=== PATIENT | female | born 1990 | race African-American/Black ===

== ENCOUNTER 2017-03-05 04:58 | Emergency (ER) | payer BC, OTHER ==
--- NOTE | 2017-03-05 05:11 | ER Document Report ---
ED Fall - General Mode of Arrival: Medic Information source: Patient TRAVEL OUTSIDE OF THE U.S. IN LAST 30 DAYS: No - HPI Occurred: Just prior to arrival Where: Home, Indoors Context: Fell from height Location of injury/pain: Elbow - left, Head <LINDA CROCKETT - Last Filed: 03/05/17 05:05> <AYLA MEJIA - Last Filed: 03/05/17 06:27> - General Stated Complaint: HEAD PAIN Time Seen by Provider: 03/05/17 05:01 Notes: The patient states that her legs felt weak when she was going to the bathroom and that is why she fell striking her head against the sink. EMS report stated that the patient slipped and fell. Either way, she did not lose consciousness. (AYLA MEJIA) - HPI Notes: Patient is a 26 year old female presenting to the emergency department after a fall. Patient states she was trying to go to the bathroom when she fell and hit the back of her head and her left elbow. Patient states her legs felt weak right before she fell. EMS reports the patient slipped and hit her head on the sink. Patient complains of pain to the back of her head and some photophobia. 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 Patient also has a history of hypertension, anxiety, and depression. Patient is allergic to oxycodone HCl. (LINDA CROCKETT) - Related data Allergies/Adverse Reactions: oxycodone HCl [From Percocet] Allergy (Verified 03/05/17 05:11) Hives Past Medical History - General Information source: Patient, [facility] Records - Social History Smoking Status: Never Smoker Cigarette use (# per day): No Chew tobacco use (# tins/day): No Smoking Education Provided: No Frequency of alcohol use: None Drug Abuse: None Family History: Hypertension Patient has suicidal ideation: No Patient has homicidal ideation: No - Past Medical History Cardiac Medical History: Reports: Hx Hypertension Neurological Medical History: Reports: Hx Cerebrovascular Accident - age 6 with left side residual weakness Psychiatric Medical History: Reports: Hx Anxiety, Hx Depression Past Surgical History: Reports: Hx Section - x 3, Hx Orthopedic Surgery - L LEG - Immunizations Hx Diphtheria, Pertussis, Tetanus Vaccination: Yes <LINDA CROCKETT - Last Filed: 03/05/17 05:05> Review of Systems - Review of Systems Constitutional: No symptoms reported EENT: No symptoms reported Cardiovascular: No symptoms reported Respiratory: No symptoms reported Gastrointestinal: No symptoms reported Genitourinary: No symptoms reported Female Genitourinary: No symptoms reported Musculoskeletal: See HPI, Joint pain Skin: No symptoms reported Hematologic/Lymphatic: No symptoms reported Neurological/Psychological: See HPI, Headaches -: Yes All other systems reviewed and negative <AMELIAFRANCO COLONINE - Last Filed: 03/05/17 05:05> Physical Exam <AMELIAFRANCO COLONINE - Last Filed: 03/05/17 05:05> <AYLA MEJIA - Last Filed: 03/05/17 06:27> - Vital signs Vitals: Temp Pulse Resp BP Pulse Ox 98.5 F 85 18 186/117 H 98 03/05/17 05:15 03/05/17 05:15 03/05/17 05:15 03/05/17 05:15 03/05/17 05:15 - Notes Notes: GENERAL: Alert, interacts well. Mild distress. HEAD: Normocephalic, atraumatic. Tenderness with palpation over the occiput. EYES: Appear normal. Pupils equal, round, and reactive to light. ENT: Moist mucus membranes, tongue midline. NECK: Full range of motion. Supple. Trachea midline. LUNGS: Clear to auscultation bilaterally, no wheezes, rales, or rhonchi. No respiratory distress. HEART: Regular rate and rhythm. No murmurs, gallops, or rubs. ABDOMEN: Soft, non-tender. Non-distended. Normal bowel sounds. EXTREMITIES: Chronic flexion and contracture of the left elbow related to previous CVA. No tenderness to the left elbow. No bruising, abrasions, or lacerations. NEUROLOGICAL: Alert and oriented x3. Normal speech. No focal neurological deficits. GSC 15. PSYCH: Normal affect, normal mood. SKIN: Warm, dry, normal turgor. No rashes or lesions noted. (AMELIAISAIAHLINDA) Course <LINDA CROCKETT - Last Filed: 03/05/17 05:05> - Laboratory Result Diagrams: 03/05/17 05:05 03/05/17 05:28 - Diagnostic Test Radiology reviewed: Image reviewed, Reports reviewed - Had an x-ray of the left elbow are unremarkable. <AYLA MEJIA - Last Filed: 03/05/17 06:27> - Re-evaluation Re-evalutation: 03/05/17 05:46 Patient's blood pressure is quite high (180/125). She is aware that she has high blood pressure and states she treats it by taking herbs. She is agreeable to starting blood pressure medications after I explained to her the likely consequences of allowing blood pressure to run this high over long period of time. When I told her I was giving her a dose of clonidine and lisinopril at this time , her mother reports she used to take both of those medications when she was younger. (AYLA MEJIA) - Vital Signs Vital signs: Temp Pulse Resp BP Pulse Ox 98.5 F 85 19 173/117 H 99 03/05/17 05:15 03/05/17 05:15 03/05/17 06:01 03/05/17 06:01 03/05/17 06:01 - Laboratory Laboratory results interpreted by me: 03/05/17 05:05 WBC 11.5 H Hgb 10.3 L Hct 31.6 L MCV 67 L MCH 22.0 L RDW 20.1 H Discharge <LINDA CROCKETT - Last Filed: 03/05/17 05:05> <AYLA MEJIA - Last Filed: 03/05/17 06:27> - Discharge Clinical Impression: Fall Qualifiers: Encounter type: initial encounter Qualified Code(s): W19.XXXA - Unspecified fall, initial encounter Contusion of occipital region of scalp Qualifiers: Encounter type: initial encounter Qualified Code(s): S00.03XA - Contusion of scalp, initial encounter Elbow contusion Qualifiers: Encounter type: initial encounter Laterality: left Qualified Code(s): S50.02XA - Contusion of left elbow, initial encounter High blood pressure Qualifiers: Hypertension type: essential hypertension Qualified Code(s): I10 - Essential ( primary) hypertension Condition: Stable Disposition: HOME, SELF-CARE Additional Instructions: Scalp and Elbow Contusions: Your fall has resulted in contusions -- a crushing of the deep tissues. No injury to important structures was detected during the physician's exam. Contusions vary in the amount of pain they cause, and in the length of time required for healing. Typically, the area will become bruised, and will remain painful to touch for two or three weeks. However, most patients are back to working and playing within a few days. After the initial period of rest and cold-packs, your symptoms (together with the doctor's recommendations) will determine how rapidly you can get back to full activity. Usually this means "do what feels okay, but don't do things that hurt." If re-examination was recommended, it's important to follow up as instructed. Call the doctor or return any time if pain increases, if swelling becomes severe, if you develop numbness or weakness in an injured extremity, or if any other alarming symptoms occur. High Blood Pressure, Requiring Treatment: Your blood pressure is high. This is called "hypertension. Your history and exam suggest that this is not a temporary problem. You need treatment of your blood pressure. If left untreated, high blood pressure greatly increases your risk of heart attack and stroke. Please don't ignore this problem. If you have blood pressure medicine but aren't using it regularly, start taking it again. Some simple things you can do to help are: Get some aerobic exercise for at least 20 minutes on a daily basis. (See your doctor before beginning any new exercise program.) Eat a low-fat diet. Lose excess weight. Avoid salty foods and avoid adding salt to any of the foods you eat. Avoid diet pills, decongestants, "energizing" herbs, and other medicines that elevate blood pressure. There are many different medicines that treat blood pressure. If your medication causes unpleasant side effects, call your doctor. There are others you can try. Treating hypertension is a life-long investment in your health. USE ICE-PACKS TO THE PAINFUL SCALP AND ELBOW AREAS TODAY. REST IN BED TODAY. DRINK PLENTY OF FLUIDS TODAY. DO NOT STAND UP QUICKLY. IF YOU STAND UP AND FEEL LIGHT HEADED, THEN LAY BACK DOWN. TAKE TYLENOL FOR PAIN IF NEEDED. START THE BLOOD PRESSURE MEDICATION TOMORROW(Wednesday). FOLLOW UP WITH A LOCAL MEDICAL DOCTOR NEXT WEEK TO CHECK YOUR BLOOD PRESSURE AND MODIFY THE MEDICATION NEEDED. RETURN TO THE EMERGENCY ROOM IF ANY NEW OR WORSENING SYMPTOMS. Prescriptions: Lisinopril 20 mg PO DAILY #30 tablet Scribe Attestation: 03/05/17 05:26 I personally performed the services described in the documentation, reviewed and edited the documentation which was dictated to the scribe in my presence, and it accurately records my words and actions. (AYLA MEJIA) Scribe Documentation - Scribe Written by Jorje:: Jorje Butler 03/05/17 5:14 acting as scribe for :: Aleida <LINDA CROCKETT - Last Filed: 03/05/17 05:05>
[2017-03-05 05:15] LABS: ABSOLUTE BASOPHILS # (AUTO) 0.1 10^3/uL (0.0-0.2); ABSOLUTE EOSINOPHILS # (AUTO) 0.1 10^3/uL (0.0-0.6); ABSOLUTE MONOCYTES (AUTO) 0.6 10^3/uL (0.1-1.4); ABSOLUTE NEUT (AUTO) 7.8 10^3/uL (1.7-8.2); BASOPHILS % (AUTO) 0.9 % (0-2); EOSINOPHILS % (AUTO) 0.7 % (0-6); HEMATOCRIT 31.6 % (36.0-47.0); HEMOGLOBIN 10.3 g/dL (12.0-15.5); HGB HCT DIFFERENCE -0.7; LYMPHOCYTES % (AUTO) 25.7 % (13-45); MEAN CORPUSCULAR HGB CONC 32.7 g/dL (32.0-36.0); MEAN CORPUSCULAR VOLUME 67 fl (80-97); MONOCYTES % (AUTO) 4.8 % (3-13); RED CELL DISTRIBUTION WIDTH 20.1 % (11.5-14.0); SEGMENTED NEUTROPHILS % (AUTO) 67.9 % (42-78); WHITE BLOOD COUNT 11.5 10^3/uL (4.0-10.5)
--- NOTE | 2017-03-05 05:37 | RADIOLOGY REPORT (SQ) ---
EXAM DESCRIPTION: CT HEAD WITHOUT COMPLETED DATE/TIME: 03/05/2017 5:17 am REASON FOR STUDY: fall, hit head and elbow COMPARISON: 05/08/2014. TECHNIQUE: Axial images acquired through the brain without intravenous contrast. Images reviewed wi th bone, brain and subdural windows. Images stored on PACS. All CT scanners at this facility use dose modulation, iterative reconstruction, and/or weight based d osing when appropriate to reduce radiation dose to as low as reasonably achievable (ALARA). [facility]: Dose Right [facility]: CareDose [facility]: Dose Right [facility]: Teradose 4D [facility]: Smart CareKinesis RADIATION DOSE: Up-to-date CT equipment and radiation dose reduction techniques were employed. CTDIv ol: 64.6 mGy. DLP: 1292 mGy-cm. mGy. LIMITATIONS: None. FINDINGS: VENTRICLES: Normal size and contour. CEREBRUM: 2.8 cm cystic lesion(s) of the right basal ganglia/ external capsule without significant in terval change compared with prior CT from 05/08/2014. No hemorrhage. No midline shift. Normal huizar /white matter differentiation. No evidence for acute infarction. CEREBELLUM: No masses. No hemorrhage. No alteration of density. No evidence for acute infarction. EXTRAAXIAL SPACES: No fluid collections. No masses. ORBITS AND GLOBE: No intra- or extraconal masses. Normal contour of globe without masses. CALVARIUM: No fracture. PARANASAL SINUSES: No fluid or mucosal thickening. SOFT TISSUES: No mass or hematoma. OTHER: No other significant finding. IMPRESSION: No acute findings. TECHNICAL DOCUMENTATION: JOB ID: [id number] Quality ID # [id number]: Final reports with documentation of one or more dose reduction techniques (e.g., Au tomated exposure control, adjustment of the mA and/or kV according to patient size, use of iterative reconstruction technique) 2010 [employer]- All Rights Reserved
--- NOTE | 2017-03-05 05:38 | RADIOLOGY REPORT (SQ) ---
EXAM DESCRIPTION: ELBOW LEFT AP/LATERAL COMPLETED DATE/TIME: 03/05/2017 5:25 am REASON FOR STUDY: fall, hit head and elbow COMPARISON: None. NUMBER OF VIEWS: Four views. TECHNIQUE: AP, lateral, and both oblique radiographic images acquired of the left elbow. LIMITATIONS: None. FINDINGS: MINERALIZATION: Normal. BONES: No acute fracture or dislocation. No worrisome bone lesions. JOINT: No effusion. SOFT TISSUES: No soft tissue swelling. No foreign body. OTHER: No other significant finding. IMPRESSION: NEGATIVE STUDY OF THE LEFT ELBOW. NO RADIOGRAPHIC EVIDENCE OF ACUTE INJURY. TECHNICAL DOCUMENTATION: JOB ID: [id number] [employer]- All Rights Reserved
[2017-03-05] MEDS ORDERED: CLONIDINE HCL 0.2 MG TABLET PO ONE (05:43)
[2017-03-05] MEDS ORDERED: LISINOPRIL 10 MG TABLET PO ONE (05:44)
[2017-03-05] MEDS ORDERED: ACETAMINOPHEN 325 MG TABLET PO ONE (05:44)
[2017-03-05 05:55] LABS: ALANINE AMINOTRANSFERASE 22 U/L (9-52); ALBUMIN 3.8 g/dL (3.5-5.0); ALKALINE PHOSPHATASE 78 U/L (38-126); ANION GAP 9 (5-19); ASPARTATE AMINO TRANSFERASE 16 U/L (14-36); BILIRUBIN,DIRECT 0.3 mg/dL (0.0-0.4); BILIRUBIN,TOTAL 0.4 mg/dL (0.2-1.3); BLOOD UREA NITROGEN 11 mg/dL (7-20); CALCIUM 9.3 mg/dL (8.4-10.2); CARBON DIOXIDE 24 mmol/L (22-30); CHLORIDE 107 mmol/L (98-107); CREATINE KINASE 78 U/L (30-135); CREATININE RESULT 0.73 mg/dL (0.52-1.25); GLUCOSE 95 mg/dL (75-110); POTASSIUM 3.9 mmol/L (3.6-5.0); SODIUM 140.4 mmol/L (137-145)
[2017-03-05 06:36] VITALS: BP 175/98
== END 2017-03-05 06:36 | disposition home or self-care (01) ==
LOC: ER 04:58
DX: S00.03XA Contusion of scalp, initial encounter (principal); S50.02XA Contusion of left elbow, initial encounter; I10 Essential (primary) hypertension; R51 Headache; R53.1 Weakness; F41.9 Anxiety disorder, unspecified; F32.9 Major depressive disorder, single episode, unspecified; W19.XXXA Unspecified fall, initial encounter
CPT/HCPCS: 36415; 70450; 80053; 82550; 84484; 85025; 99284

== ENCOUNTER 2017-04-08 18:27 | Emergency (ER) | payer SELFPAY ==
[2017-04-08 18:45] VITALS: BP 171/116
--- NOTE | 2017-04-08 20:37 | ER Document Report ---
ED ENT - General Chief Complaint: Sore Throat Stated Complaint: THROAT PAIN Time Seen by Provider: 04/08/17 20:03 Mode of Arrival: Ambulatory Information source: Patient Notes: 26-year-old female presents to ED for complaint of swollen lymph node in the left neck. She also has a tooth on the left lower jaw that has a cavity. She denies any fevers or any other symptoms. She does have an elevated blood pressure and she does not take her medications because she has not been to the doctor because her was killed on March 15 and has not been able to concentrate on anything. She has not been to the doctor for her blood pressure medication. She had a stroke when she was age 6 from elevated blood pressure. TRAVEL OUTSIDE OF THE [place].S[place] IN LAST 30 DAYS: No - HPI Patient complains to provider of: Throat problem Onset: Other - Couple days Onset/Duration: Gradual Quality of pain: Achy Severity: Moderate Pain Level: 3 Context: Other - Painful swelling to the left side of her neck Location of pain: Neck - Swollen lymph node, Throat Associated symptoms: Swollen glands, Other - Dental pain Similar symptoms previously: Yes Recently seen / treated by doctor: No - Related Data Allergies/Adverse Reactions: oxycodone HCl [From Percocet] Allergy (Verified 03/05/17 05:11) Hives Past Medical History - General Information source: Patient - Social History Smoking Status: Never Smoker Cigarette use (# per day): No Chew tobacco use (# tins/day): No Smoking Education Provided: No Frequency of alcohol use: None Drug Abuse: None Lives with: Alone - States she lives alone with her child now her on March 15 Family History: Arthritis, CAD, CVA, DM, Hyperlipidemia, Hypertension, Malignancy. denies: COPD, Thyroid Disfunction Patient has suicidal ideation: No - Past Medical History Cardiac Medical History: Reports: Hx Hypertension Pulmonary Medical History: Reports: None EENT Medical History: Reports: None Neurological Medical History: Reports: Hx Cerebrovascular Accident - age 6 with left side residual weakness Endocrine Medical History: Reports: None Renal/ Medical History: Reports: None Malignancy Medical History: Reports: None GI Medical History: Reports: None Musculoskeltal Medical History: Reports None Skin Medical History: Reports None Psychiatric Medical History: Reports: Hx Anxiety, Hx Depression Traumatic Medical History: Reports: None Infectious Medical History: Reports: None Past Surgical History: Reports: Hx Section - x 3, Hx Orthopedic Surgery - L LEG - Immunizations Immunizations up to date: Yes Hx Diphtheria, Pertussis, Tetanus Vaccination: Yes Review of Systems - Review of Systems Constitutional: Recent illness EENT: Nose discharge, Dental problem, Other - Enlarged lymph nodes in the neck Cardiovascular: No symptoms reported Respiratory: No symptoms reported Gastrointestinal: No symptoms reported Genitourinary: No symptoms reported Female Genitourinary: No symptoms reported Musculoskeletal: No symptoms reported Skin: No symptoms reported Hematologic/Lymphatic: No symptoms reported Neurological/Psychological: No symptoms reported -: Yes All other systems reviewed and negative Physical Exam - Vital signs Vitals: Temp Pulse Resp BP Pulse Ox 98.3 F 99 16 171/116 H 100 04/08/17 18:40 04/08/17 18:40 04/08/17 18:40 04/08/17 18:40 04/08/17 18:40 Interpretation: Hypertensive - General General appearance: Appears well, Alert - HEENT Head: Normocephalic, Atraumatic Eyes: Normal Pupils: PERRL Ears: Normal External canal: Normal Tympanic membrane: Normal Sinus: Normal Nasal: Swelling, Clear rhinorrhea Mouth/Lips: Caries Mucous membranes: Normal Pharynx: Post nasal drainage Neck: Anterior cervical chain, Lymphadenopathy - Respiratory Respiratory status: No respiratory distress Chest status: Nontender Breath sounds: Normal Chest palpation: Normal - Cardiovascular Rhythm: Regular Heart sounds: Normal auscultation Murmur: No - Abdominal Inspection: Normal Distension: No distension Bowel sounds: Normal Tenderness: Nontender Organomegaly: No organomegaly - Back Back: Normal, Nontender - Extremities General upper extremity: Normal inspection, Nontender, Normal color, Normal ROM , Normal temperature General lower extremity: Normal inspection, Nontender, Normal color, Normal ROM , Normal temperature, Normal weight bearing. No: Steph's sign - Neurological Neuro grossly intact: Yes Cognition: Normal Orientation: AAOx4 Jacky Coma Scale Eye Opening: Spontaneous Jacky Coma Scale Verbal: Oriented [place] Coma Scale Motor: Obeys Commands [place] Coma Scale Total: 15 Speech: Normal Motor strength normal: LUE, RUE, LLE, RLE Sensory: Normal - Psychological Associated symptoms: Normal affect, Normal mood - Skin Skin Temperature: Warm Skin Moisture: Dry Skin Color: Normal Course - Re-evaluation Re-evalutation: 09/14/17 20:53 Patient was given prescriptions for Penicillin VK and lisinopril for her dental cavity and her elevated blood pressure. Patient has a history of elevated blood pressure with a stroke and has not been taken her blood pressure medicine because she was upset about her being killed on March 15 of this year. I explained to the patient that since she has children and she is now the sole parent that she needs to be taken her blood pressure medicine and taking care of herself so that their children would have a parent. Patient was very thankful for me make sure that she understood that it was extremely important for her to take her medication as ordered. I wrote her a prescription for months with the lisinopril and gave her a list of all the local doctors to follow-up with to keep her blood pressure under control. - Vital Signs Vital signs: Temp Pulse Resp BP Pulse Ox 98.3 F 99 16 171/116 H 100 04/08/17 18:40 04/08/17 18:40 04/08/17 18:40 04/08/17 18:40 04/08/17 18:40 Discharge - Discharge Clinical Impression: Pain due to dental caries, Lymphadenopathy of head and neck Condition: Stable Disposition: HOME, SELF-CARE Instructions: Family Physicians / Practices Additional Instructions: TOOTHACHE: Your pain is due to dental decay. The tooth must be repaired in order for you to feel better. You will, therefore, be referred to a dentist. We do not have dentists on the staff at [facility]. Severe swelling or drainage around a tooth usually means a dental abscess. This also requires evaluation and treatment by the dentist, but antibiotics may be prescribed while awaiting dental treatment. You should be rechecked immediately if you develop major swelling of the face, increasing pain, a lump in the jaw or gums, headache, difficulty swallowing, or fever. Lymphadenopathy You have enlargement of lymph glands, called lymphadenopathy. Lymph glands filter tissue fluids. They help to fight infection. Most of the time, enlarged lymph glands are not serious. Lymph glands may react to a viral or bacterial infection by becoming swollen and painful. When the infection goes away, the glands shrink. Sometimes a lymph gland will remain enlarged for a long time after an infection. Occasionally, a lymph gland may be overwhelmed by infection and form an abscess. If an enlarged lymph gland has signs that are suspicious for tumor, the doctor will recommend a biopsy. A suspicious gland usually is NOT painful, grows very slowly, and is rock-hard to touch. See the doctor or return if there is increasing swelling and redness, high fever, difficulty breathing, or any other change for the worse. PENICILLIN V K: You have been given a prescription for Penicillin VK. Your physician has determined that this is the best antibiotic for your condition. Pen VK can be taken with meals, however more of the antibiotic gets into the bloodstream if it's taken on an empty stomach. Penicillin usually has no side effects. However, allergy to penicillins is common. If you have had an allergic reaction to any drug of the penicillin family, you should never take any other penicillin. Notify your doctor at once if you develop hives, itching, swelling, faintness, or shortness of breath. FOLLOW-UP CARE: You have been referred for follow-up care to the dentists listed below. Call the dentists office for an appointment as you were instructed or within the next two days. If you experience worsening or a significant change in your symptoms, notify the physician immediately or return to the Emergency Department at any time for re-evaluation. [facility] [address] [place], [place] Wednesday mornings, by appointment [facility] [address] [place] [address] [facility] [place] [address] [facility] [address] [facility] (4th) [facility] [address] [email or web address] [address] [place] [address] Wednesday- 8:00am to 5:00 pm Will see patients from other [facility]. Charges based on income and family size and accepts Medicare, Medicaid, and Insurances Will pull molars [facility] N. [id number] Hours of Operation 8:00 am - 4:30 pm weekdays The following dental offices accept Medicaid: [facility] Dr. Healy Dr. Bowden Dr. Veras Dr. Tran Sammy Denton, Rishi, and Mary oral surgery Dr. Pena ([place]) Dr. Tobar ([place]) [facility] Drs. Garcia and Irvin ([place]) Dr. Ojeda ([place]) [facility] Dr. Addison ([place]) Drs. Javier and ([place]) Medicaid Care Line Prescriptions: Lisinopril 20 mg PO DAILY #30 tablet Penicillin V Potassium [Penicillin Vk 500 mg Tablet] 500 mg PO BID #20 tablet Forms: Elevated Blood Pressure Referrals: LOCAL,NO [Primary Care Provider] - Follow up as needed
== END 2017-04-08 20:45 | disposition home or self-care (01) ==
LOC: ER 18:27
DX: K02.9 Dental caries, unspecified (principal); R59.1 Generalized enlarged lymph nodes; J02.9 Acute pharyngitis, unspecified; I10 Essential (primary) hypertension; I69.954 Hemiplegia and hemiparesis following unspecified cerebrovascular disease affecting left non-dominant side; Z88.6 Allergy status to analgesic agent
CPT/HCPCS: 99283

== ENCOUNTER 2017-12-21 19:59 | Emergency (ER) | payer OTHER ==
[2017-12-21 20:41] VITALS: BP 136/95
== END 2017-12-21 22:00 | disposition left against medical advice (07) ==
LOC: ER 19:59
DX: Z53.21 Procedure and treatment not carried out due to patient leaving prior to being seen by health care provider (principal)

== ENCOUNTER 2018-12-09 12:25 | Emergency (ER) | payer SELFPAY ==
[2018-12-09] MEDS ORDERED: ONDANSETRON HCL INJ/PF 4 MG/2 ML SDV IV ONE (12:38)
--- NOTE | 2018-12-09 12:42 | ER Document Report ---
ED Medical Screen (RME) - General Chief Complaint: Abdominal Pain Stated Complaint: ABDOMINAL PAIN Time Seen by Provider: 12/09/18 12:30 Mode of Arrival: Wheelchair Information source: Patient Notes: 28-year-old female presented to ED for complaint of severe epigastric pain just above the umbilicus this started about an hour ago. She stated in 9:51 AM this morning she started with nauseated and then progressed to the severe pain in the epigastric area. She does have a history of GERD she is also had a stroke in 1996 with left-sided weakness and she has a blood pressure with true high blood pressure. She states she took her high blood pressure medicine this morning. She is alert oriented respirations regular and unlabored speaking in full sentences she is in a wheelchair at this time. I have greeted and performed a rapid initial assessment of this patient. A comprehensive ED assessment and evaluation of the patient, analysis of test results and completion of medical decision making process will be conducted by an additional ED providers. Dictation of this chart was performed using voice recognition software; therefore, there may be some unintended grammatical errors. TRAVEL OUTSIDE OF THE [place] IN LAST 30 DAYS: No - Related Data Allergies/Adverse Reactions: oxycodone HCl [From Percocet] Allergy (Verified 12/09/18 12:26) Hives Past Medical History - Past Medical History Cardiac Medical History: Reports: Hx Hypertension Neurological Medical History: Reports: Hx Cerebrovascular Accident - age 6 with left side residual weakness Renal/ Medical History: Denies: Hx Peritoneal Dialysis Psychiatric Medical History: Reports: Hx Anxiety, Hx Depression Past Surgical History: Reports: Hx Section - x 3, Hx Orthopedic Surgery - L LEG - Immunizations Immunizations up to date: Yes Hx Diphtheria, Pertussis, Tetanus Vaccination: Yes Physical Exam - Vital signs Vitals: Temp Pulse Resp BP Pulse Ox 98.7 F 80 16 164/101 H 98 12/09/18 12:32 12/09/18 12:32 12/09/18 12:32 12/09/18 12:32 12/09/18 12:32 Course - Vital Signs Vital signs: Temp Pulse Resp BP Pulse Ox 98.7 F 80 16 164/101 H 98 12/09/18 12:32 12/09/18 12:32 12/09/18 12:32 12/09/18 12:32 12/09/18 12:32
--- NOTE | 2018-12-09 13:35 | RADIOLOGY REPORT (SQ) ---
EXAM DESCRIPTION: CHEST 2 VIEWS COMPLETED DATE/TIME: 12/09/2018 1:20 pm REASON FOR STUDY: epigastric pain COMPARISON: None. EXAM PARAMETERS: NUMBER OF VIEWS: two views TECHNIQUE: Digital Frontal and Lateral radiographic views of the chest acquired. RADIATION DOSE: NA LIMITATIONS: none FINDINGS: LUNGS AND PLEURA: No opacities, masses or pneumothorax. No pleural effusion. MEDIASTINUM AND HILAR STRUCTURES: No masses or contour abnormalities. HEART AND VASCULAR STRUCTURES: Heart normal size. No evidence for failure. BONES: Scoliosis. HARDWARE: None in the chest. OTHER: No other significant finding. IMPRESSION: Scoliosis. No acute cardiopulmonary findings. TECHNICAL DOCUMENTATION: JOB ID: [id number] [employer]- All Rights Reserved Reading location - IP/workstation name: [email or web address]
[2018-12-09 13:37] LABS: APPEARANCE,URINE SLIGHTLY-CLOUDY; BILIRUBIN,URINE NEGATIVE (NEGATIVE); COLOR,URINE YELLOW; GLUCOSE, URINE NEGATIVE (NEGATIVE); KETONES,URINE TRACE mg/dL (NEGATIVE); LEUKOCYTE ESTERASE,URINE NEGATIVE (NEGATIVE); NITRITE,URINE NEGATIVE (NEGATIVE); PROTEIN,URINE NEGATIVE (NEGATIVE); UROBILINOGEN,URINE NEGATIVE mg/dL (<2.0)
[2018-12-09] MEDS ORDERED: DICYCLOMINE HCL 20 MG TABLET PO ONE (14:14)
--- NOTE | 2018-12-09 14:19 | ER Document Report ---
ED General - General Chief Complaint: Abdominal Pain Stated Complaint: ABDOMINAL PAIN Time Seen by Provider: 12/09/18 12:30 Mode of Arrival: Wheelchair Information source: Patient TRAVEL OUTSIDE OF THE [place] IN LAST 30 DAYS: No - HPI Patient complains to provider of: Midline abdominal pain Onset: Other - 11:00 this morning Onset/Duration: Sudden, Waxing and waning Quality of pain: Sharp Severity: Severe Pain Level: 5 Associated symptoms: denies: Chills, Fever Exacerbated by: Denies Relieved by: Denies Similar symptoms previously: No Recently seen / treated by doctor: No Notes: 28-year-old -French female with history of acid reflux not presently treated coming in today with midline abdominal discomfort that she says radiates to her buttocks. No fevers or chills. No nausea vomiting or diarrhea. No recent history of constipation. Patient is not having any chest pain or shortness of breath. - Related Data Allergies/Adverse Reactions: oxycodone HCl [From Percocet] Allergy (Verified 12/09/18 12:26) Hives Past Medical History - General Information source: Patient - Social History Smoking Status: Never Smoker Frequency of alcohol use: None Drug Abuse: None Family History: Arthritis, CAD, CVA, DM, Hyperlipidemia, Hypertension, Romina gnancy. denies: COPD, Thyroid Disfunction Patient has suicidal ideation: No Patient has homicidal ideation: No - Past Medical History Cardiac Medical History: Reports: Hx Hypertension Neurological Medical History: Reports: Hx Cerebrovascular Accident - age 6 with left side residual weakness Renal/ Medical History: Denies: Hx Peritoneal Dialysis Psychiatric Medical History: Reports: Hx Anxiety, Hx Depression Past Surgical History: Reports: Hx Section - x 3, Hx Orthopedic Surgery - L LEG - Immunizations Immunizations up to date: Yes Hx Diphtheria, Pertussis, Tetanus Vaccination: Yes Review of Systems - Review of Systems Notes: Constitutional: No fevers. No chills. EENT: No eye redness. No eye pain. No ear pain. No sore throat. Cardiovascular: No chest pain. No palpitations. Respiratory: No cough. No shortness of breath. No respiratory distress. Gastrointestinal: Positive for abdominal pain negative for nausea vomiting diarrhea Genitourinary: Atraumatic. No lesions. No pain. No discharge. Musculoskeletal: Atraumatic. No swelling. No deformities. Skin: No rash or lesions. Lymphatic: No swollen lymph nodes. Neurologic: No headache. No syncope. Psychiatric: No suicidal or homicidal ideation. Physical Exam - Vital signs Vitals: Temp Pulse Resp BP Pulse Ox 98.7 F 80 16 164/101 H 98 12/09/18 12:32 12/09/18 12:32 12/09/18 12:32 12/09/18 12:32 12/09/18 12:32 - Notes Notes: General: Well-developed, well-nourished. In no acute distress. Non-toxic appearing. Cardiac: Well-perfused. Regular rate and rhythm. No murmurs, rubs, or gallops. Pulmonary: No respiratory distress. No cyanosis. Bilateral lung fiels are clear to auscultation. Abdominal: Tenderness to deep palpation just above the umbilicus. Abdomen is soft. No guarding or rebound. Bowel sounds are present in all 4 quadrants. No peritoneal sign HEENT: Head is atraumatic. Conjunctivae not reddened. No tearing. PERRL. EOMI. Orbits atraumatic. No periorbital swelling or erythema. Oropharynx is without erythema, swelling, or exudates. Neck: Supple. No adenopathy. No meningismus. Dermatologic: Warm with good turgor. No rash. Atraumatic. Chest: Atraumatic. No chest wall tenderness to palpation. Musculoskeletal: Moves all extremities well. No range of motion deficits. no muscular or joint tenderness. No paraspinal muscle tenderness. no midline spinal tenderness or step-off. Genitourinary: Examination deferred Neurologic: No gross neurologic deficits. Psychiatric: Normal mood. Course - Re-evaluation Re-evalutation: 12/09/18 14:18 Appropriate work-up started in pit. Because the patient is having referred pain from her abdomen to her buttock, we will get a KUB to check for signs of constipation. She definitely does not present like an acute abdomen. Quite possibly this is a problem having to do with acid reflux. 12/09/18 15:28 Right upper quadrant ultrasound negative. KUB reveals moderate retained stool throughout consistent with constipation. Labs are reassuring - Vital Signs Vital signs: Temp Pulse Resp BP Pulse Ox 98.7 F 80 16 164/101 H 98 12/09/18 12:32 12/09/18 12:32 12/09/18 12:32 12/09/18 12:32 12/09/18 12:32 - Laboratory Laboratory results interpreted by me: 12/09/18 13:00 Urine Ketones TRACE H Discharge - Discharge Clinical Impression: Elevated blood pressure reading Constipation Qualifiers: Constipation type: unspecified constipation type Qualified Code(s): K59.00 - Constipation, unspecified Condition: Good Disposition: HOME, SELF-CARE Instructions: Constipation ([facility]) Additional Instructions: Go to the pharmacy and get some MiraLAX as well as Metamucil as this should help to move along the excess amount of stool. Tylenol as needed for pain. Referrals: [facility] [Provider Group] - Follow up as needed
--- NOTE | 2018-12-09 14:48 | RADIOLOGY REPORT (SQ) ---
EXAM DESCRIPTION: U/S ABDOMEN LIMITED W/O DOP COMPLETED DATE/TIME: 12/09/2018 2:38 pm REASON FOR STUDY: epigastric pain COMPARISON: None. TECHNIQUE: Dynamic and static grayscale images acquired of the abdomen and recorded on PACS. Additio randee selected color Doppler and spectral images recorded. LIMITATIONS: None. FINDINGS: PANCREAS: No masses. Visualized pancreatic duct normal caliber. LIVER: No masses. Echotexture normal. LIVER VASCULATURE: Normal directional flow of the main portal vein and hepatic veins. GALLBLADDER: No stones. Normal wall thickness. No pericholecystic fluid. ULTRASOUND-DETECTED SINGH'S SIGN: Negative. INTRAHEPATIC DUCTS AND COMMON DUCT: CBD and intrahepatic ducts normal caliber. No filling defects. INFERIOR VENA CAVA: Normal flow. AORTA: No aneurysm. RIGHT KIDNEY: Normal size. Normal echogenicity. No solid or suspicious masses. No hydronephrosis. No calcifications. PERITONEAL AND RIGHT PLEURAL SPACE: No ascites or effusions. OTHER: No other significant findings. IMPRESSION: NORMAL RIGHT UPPER QUADRANT ULTRASOUND. TECHNICAL DOCUMENTATION: JOB ID: [id number] [employer]- All Rights Reserved Reading location - IP/workstation name: [email or web address]
--- NOTE | 2018-12-09 14:51 | RADIOLOGY REPORT (SQ) ---
EXAM DESCRIPTION: KUB/ABDOMEN (SINGLE VIEW) COMPLETED DATE/TIME: 12/09/2018 2:42 pm REASON FOR STUDY: periumbilical pain radiates to buttocks COMPARISON: None. NUMBER OF VIEWS: One view. TECHNIQUE: Supine radiographic image of the abdomen acquired. LIMITATIONS: None. FINDINGS: BOWEL GAS PATTERN: Nonobstructive gas pattern. Moderate retained stool. CALCIFICATIONS: No suspicious calcifications. SOFT TISSUES: No gross mass or suggestion of organomegaly. HARDWARE: None in the abdomen. BONES: No acute fracture. No worrisome bone lesions. OTHER: No other significant finding. IMPRESSION: NO RADIOGRAPHIC EVIDENCE FOR ACUTE ABDOMINAL DISEASE. TECHNICAL DOCUMENTATION: JOB ID: [id number] [employer]- All Rights Reserved Reading location - IP/workstation name: [email or web address]
[2018-12-09 16:05] VITALS: BP 149/94
--- NOTE | 2018-12-09 16:29 | EKG REPORT ---
SEVERITY:- BORDERLINE ECG - SINUS RHYTHM BORDERLINE T ABNORMALITIES, INFERIOR LEADS : Confirmed by: Basil Ortiz MD 09-Dec-2018 16:28:23
== END 2018-12-09 16:09 | disposition home or self-care (01) ==
LOC: ER 12:25
DX: I10 Essential (primary) hypertension (principal); K59.00 Constipation, unspecified; R10.9 Unspecified abdominal pain; Z88.6 Allergy status to analgesic agent; I69.354 Hemiplegia and hemiparesis following cerebral infarction affecting left non-dominant side
CPT/HCPCS: 93005; 99284; 96374; 81001; 71046; 74018; 76705; 93010; J3490; J2405

== ENCOUNTER 2019-04-09 15:04 | Emergency (ER) | payer OTHER ==
--- NOTE | 2019-04-09 15:29 | ER Document Report ---
ED ENT - General Chief Complaint: Chest Congestion Stated Complaint: DIFFICUTLY BREATHING Time Seen by Provider: 04/09/19 15:17 TRAVEL OUTSIDE OF THE [place] IN LAST 30 DAYS: No - Related Data Allergies/Adverse Reactions: oxycodone HCl [From Percocet] Allergy (Verified 04/09/19 15:05) Hives Past Medical History - Social History Smoking Status: Never Smoker Chew tobacco use (# tins/day): No Frequency of alcohol use: None Drug Abuse: None Family History: Arthritis, CAD, CVA, DM, Hyperlipidemia, Hypertension, Malignancy. denies: COPD, Thyroid Disfunction Patient has suicidal ideation: No Patient has homicidal ideation: No - Past Medical History Cardiac Medical History: Reports: Hx Hypertension Neurological Medical History: Reports: Hx Cerebrovascular Accident - age 6 with left side residual weakness Renal/ Medical History: Denies: Hx Peritoneal Dialysis Psychiatric Medical History: Reports: Hx Anxiety, Hx Depression Past Surgical History: Reports: Hx Section - x 3, Hx Orthopedic Surgery - L LEG - Immunizations Immunizations up to date: Yes Hx Diphtheria, Pertussis, Tetanus Vaccination: Yes Physical Exam - Vital signs Vitals: Temp Pulse Resp BP Pulse Ox 99.5 F 105 H 17 148/81 H 96 04/09/19 15:11 04/09/19 15:11 04/09/19 15:11 04/09/19 15:11 04/09/19 15:11 Course - Vital Signs Vital signs: Temp Pulse Resp BP Pulse Ox 99.5 F 105 H 17 148/81 H 96 04/09/19 15:11 04/09/19 15:11 04/09/19 15:11 04/09/19 15:11 04/09/19 15:11
--- NOTE | 2019-04-09 15:43 | ER Document Report ---
ED ENT - General Chief Complaint: Neck Swelling Stated Complaint: DIFFICUTLY BREATHING Time Seen by Provider: 04/09/19 15:17 Primary Care Provider: [facility] [Provider Group] - Follow up tomorrow Mode of Arrival: Ambulatory Information source: Patient Notes: 28-year-old female presents to ED for complaint of pain and swelling to the throat worse for the last couple days. She states she is felt like her thyroids were enlarged for a long time but when she saw her SIGHTER when rest recently they told her that at her next visit they would draw labs and check her thyroid. She is 14 weeks . She states she did have a stroke in 1996 and has a history of high blood pressure. She is also had 3 C-sections. She does not smoke drink or do any drugs she does not work she lives with her child. She is 4 para 3 one child lives with her TRAVEL OUTSIDE OF THE [place] IN LAST 30 DAYS: No - HPI Patient complains to provider of: Throat problem Onset: Other - Does not want pain medicine Onset/Duration: Gradual - ongoing Quality of pain: Other - Pressure Severity: Mild Pain Level: 2 Location of pain: Neck Associated symptoms: Neck pain, Other - Enlarged thyroid Similar symptoms previously: Yes Recently seen / treated by doctor: Yes - Related Data Allergies/Adverse Reactions: oxycodone HCl [From Percocet] Allergy (Verified 04/09/19 15:05) Hives Past Medical History - General Information source: Patient - Social History Smoking Status: Never Smoker Chew tobacco use (# tins/day): No Frequency of alcohol use: None Drug Abuse: None Lives with: Alone - With child Family History: Arthritis, CAD, CVA, DM, Hyperlipidemia, Hypertension, Malignancy. denies: COPD, Thyroid Disfunction Patient has suicidal ideation: No Patient has homicidal ideation: No - Past Medical History Cardiac Medical History: Reports: Hx Hypertension Pulmonary Medical History: Reports: None Neurological Medical History: Reports: Hx Cerebrovascular Accident - age 6 with left side residual weakness Endocrine Medical History: Reports: None Renal/ Medical History: Reports: None Malignancy Medical History: Reports: None GI Medical History: Reports: None Musculoskeletal Medical History: Reports None Skin Medical History: Reports None Psychiatric Medical History: Reports: Hx Anxiety, Hx Depression Traumatic Medical History: Reports: None Infectious Medical History: Reports: None Past Surgical History: Reports: Hx Section - x 3, Hx Orthopedic Surgery - L LEG - Immunizations Immunizations up to date: Yes Hx Diphtheria, Pertussis, Tetanus Vaccination: Yes Review of Systems - Review of Systems Constitutional: No symptoms reported EENT: Other - Enlarged thyroid palpated swelling to the neck Cardiovascular: No symptoms reported Respiratory: No symptoms reported Gastrointestinal: No symptoms reported Genitourinary: No symptoms reported Female Genitourinary: No symptoms reported Musculoskeletal: No symptoms reported Skin: No symptoms reported Hematologic/Lymphatic: No symptoms reported Neurological/Psychological: No symptoms reported -: Yes All other systems reviewed and negative Physical Exam - Vital signs Vitals: Temp Pulse Resp BP Pulse Ox 99.5 F 105 H 17 148/81 H 96 04/09/19 15:11 04/09/19 15:11 04/09/19 15:11 04/09/19 15:11 04/09/19 15:11 Interpretation: Normal - General General appearance: Appears well, Alert - HEENT Head: Normocephalic, Atraumatic Eyes: Normal Pupils: PERRL Ears: Normal External canal: Normal Tympanic membrane: Normal Sinus: Normal Nasal: Purulent discharge, Swelling Mouth/Lips: Normal Mucous membranes: Normal Pharynx: Post nasal drainage Neck: Thyromegally - Respiratory Respiratory status: No respiratory distress Chest status: Nontender Breath sounds: Normal Chest palpation: Normal - Cardiovascular Rhythm: Regular Heart sounds: Normal auscultation Murmur: No - Abdominal Inspection: Normal Distension: No distension Bowel sounds: Normal Tenderness: Nontender Organomegaly: No organomegaly - Back Back: Normal, Nontender - Extremities General upper extremity: Normal inspection, Nontender, Normal color, Normal ROM, Normal temperature General lower extremity: Normal inspection, Nontender, Normal color, Normal ROM, Normal temperature, Normal weight bearing. No: Steph's sign - Neurological Neuro grossly intact: Yes Cognition: Normal Orientation: AAOx4 Jacky Coma Scale Eye Opening: Spontaneous [place] Coma Scale Verbal: Oriented [place] Coma Scale Motor: Obeys Commands Jacky Coma Scale Total: 15 Speech: Normal Motor strength normal: LUE, RUE, LLE, RLE Sensory: Normal - Psychological Associated symptoms: Normal affect, Normal mood - Skin Skin Temperature: Warm Skin Moisture: Dry Skin Color: Normal Course - Vital Signs Vital signs: Temp Pulse Resp BP Pulse Ox 98.2 F 102 H 18 135/82 H 100 04/09/19 16:52 04/09/19 16:52 04/09/19 16:52 04/09/19 16:52 04/09/19 16:52 - Laboratory Laboratory results interpreted by me: 04/09/19 15:35 TSH < 0.01 L - Diagnostic Test Radiology reviewed: Image reviewed, Reports reviewed Discharge - Discharge Clinical Impression: Thyroid nodule Condition: Stable Disposition: HOME, SELF-CARE Additional Instructions: You were seen today for swelling and discomfort in your throat. Your thyroid ultrasound did show nodules on the left and right of your thyroid. I have given you a written report for your thyroid ultrasound as well as your thyroid levels. Please call your primary doctor in the morning and schedule follow-up visit to follow-up with these results. There is no emergency treatment needed today for these levels in this ultrasound but they do need to be followed up. FOLLOW-UP CARE: If you have been referred to a physician for follow-up care, call the physicians office for an appointment as you were instructed or within the next two days. If you experience worsening or a significant change in your symptoms, notify the physician immediately or return to the Emergency Department at any time for re-evaluation. Forms: Elevated Blood Pressure Referrals: [facility] [Provider Group] - Follow up tomorrow
--- NOTE | 2019-04-09 16:10 | RADIOLOGY REPORT (SQ) ---
EXAM DESCRIPTION: U/S THYROID/SFT TISS HD NECK COMPLETED DATE/TIME: 04/09/2019 3:56 pm REASON FOR STUDY: pain swelling difficulty swallowing COMPARISON: None. TECHNIQUE: Dynamic and static huizar-scale images acquired of the thyroid gland. Selected additional c olor/power Doppler images recorded. All images stored to PACS. LIMITATIONS: None. FINDINGS: RIGHT LOBE: Upper limits of normal size. Mild heterogeneous echotexture. 5 x 7 x 4 mm co mplex cystic nodule. No Solid masses. LEFT LOBE: Normal size. Mild heterogeneous echotexture. There are 2 complex cystic nodules, 6 x 5 x 5 mm and 5 x 5 x 3 mm. No Solid masses. ISTHMUS: Increased thickness, 6 mm. Mild heterogeneous echotexture. No cystic or solid masses. OTHER: No other significant finding. IMPRESSION: Mild heterogeneous thyroid echotexture with complex cystic nodules as described. No lalo id masses identified. TECHNICAL DOCUMENTATION: JOB ID: [id number] [employer]- All Rights Reserved Reading location - IP/workstation name: [email or web address]
[2019-04-09 16:19] LABS: FREE T3 4.41 pg/mL (2.77-5.27); FREE T4 (FREE THYROXINE) 1.89 ng/dL (0.78-2.19)
[2019-04-09 16:32] LABS: THYROID STIMULATING HORMONE < 0.01 uIU/mL (0.47-4.68)
[2019-04-09 16:54] VITALS: BP 135/82
== END 2019-04-09 16:54 | disposition home or self-care (01) ==
LOC: ER 15:04
DX: O99.281 Endocrine, nutritional and metabolic diseases complicating pregnancy, first trimester (principal); E04.1 Nontoxic single thyroid nodule; O16.1 Unspecified maternal hypertension, first trimester; Z3A.14 14 weeks gestation of pregnancy
CPT/HCPCS: 36415; 76536; 84439; 84443; 84481; 99284

== ENCOUNTER 2019-04-26 21:46 | Emergency (ER) | payer OTHER, MEDICAID ==
[2019-04-27 00:32] LABS: ABSOLUTE EOSINOPHILS # (AUTO) 0.1 10^3/uL (0.0-0.6); ABSOLUTE LYMPHOCYTES (AUTO) 2.4 10^3/uL (0.5-4.7); ABSOLUTE MONOCYTES (AUTO) 0.8 10^3/uL (0.1-1.4); ABSOLUTE NEUT (AUTO) 9.8 10^3/uL (1.7-8.2); BASOPHILS % (AUTO) 0.3 % (0-2); EOSINOPHILS % (AUTO) 0.5 % (0-6); HEMATOCRIT 31.1 % (36.0-47.0); HEMOGLOBIN 9.8 g/dL (12.0-15.5); LYMPHOCYTES % (AUTO) 18.4 % (13-45); MEAN CORPUSCULAR HEMOGLOBIN 22.2 pg (27.0-33.4); MEAN CORPUSCULAR HGB CONC 31.4 g/dL (32.0-36.0); MEAN CORPUSCULAR VOLUME 71 fl (80-97); PLATELET COUNT 256 10^3/uL (150-450); RED BLOOD COUNT 4.41 10^6/uL (3.72-5.28); SEGMENTED NEUTROPHILS % (AUTO) 74.8 % (42-78); TOTAL CELLS COUNTED % (AUTO) 100 %; WHITE BLOOD COUNT 13.1 10^3/uL (4.0-10.5)
[2019-04-27 00:36] LABS: APPEARANCE,URINE CLEAR; BILIRUBIN,URINE NEGATIVE (NEGATIVE); CALCIUM OXALATE CRYSTALS,URINE MODERATE /HPF; COLOR,URINE YELLOW; GLUCOSE, URINE NEGATIVE (NEGATIVE); KETONES,URINE TRACE mg/dL (NEGATIVE); LEUKOCYTE ESTERASE,URINE NEGATIVE (NEGATIVE); NITRITE,URINE NEGATIVE (NEGATIVE); PROTEIN,URINE 30 mg/dL (NEGATIVE); URINE SPECIFIC GRAVITY 1.025
[2019-04-27 00:47] LABS: ALBUMIN 3.6 g/dL (3.5-5.0); ALKALINE PHOSPHATASE 61 U/L (38-126); ANION GAP 8 (5-19); ASPARTATE AMINO TRANSFERASE 21 U/L (14-36); BILIRUBIN,DIRECT 0.1 mg/dL (0.0-0.4); BILIRUBIN,TOTAL 0.3 mg/dL (0.2-1.3); BLOOD UREA NITROGEN 7 mg/dL (7-20); CALCIUM 9.8 mg/dL (8.4-10.2); CARBON DIOXIDE 23 mmol/L (22-30); CHLORIDE 104 mmol/L (98-107); GLUCOSE 91 mg/dL (75-110); POTASSIUM 3.4 mmol/L (3.6-5.0); TOTAL PROTEIN 6.7 g/dL (6.3-8.2)
[2019-04-27] MEDS ORDERED: NORMAL SALINE 1000 ML 1,000 ML IV ONE (01:08)
[2019-04-27] MEDS ORDERED: LABETALOL HCL INJ 20 MG/4 ML DISP.SYRIN IV ONE ×2 (01:11→01:50)
[2019-04-27] MEDS ORDERED: ACETAMINOPHEN 325 MG TABLET PO ONE (01:50)
--- NOTE | 2019-04-27 01:50 | ER Document Report ---
ED General - General Chief Complaint: OB Problem (<20wks) Stated Complaint: STOMACH PAIN Time Seen by Provider: 04/27/19 00:36 Primary Care Provider: HARI SUAREZ MD [Primary Care Provider] - Follow up as needed Notes: Patient is a 28-year-old female history of hypertension presents to the emergency department for vaginal bleeding for the last 2 days. Patient states she is G4, P3 currently 16.5 weeks . Patient states her vaginal bleeding has been "really light." Patient reports that she has had spotting, is denying use of tampons or pads. States she is only using pantiliners. Patient states tonight around 1700 hrs. she started with lower abdominal cramping which is why she came to the emergency room. Patient states she does have an appointment with her DRUG ABUSE COUNSELOR on Wednesday. Patient states approximately 2 weeks ago they changed her blood pressure medication to labetalol. States she takes 100 m g daily. Patient also takes iron for anemia and vitamins. TRAVEL OUTSIDE OF THE [place] IN LAST 30 DAYS: No - Related Data Allergies/Adverse Reactions: oxycodone HCl [From Percocet] Allergy (Verified 04/09/19 15:05) Hives Past Medical History - General Information source: Patient - Social History Smoking Status: Never Smoker Family History: Arthritis, CAD, CVA, DM, Hyperlipidemia, Hypertension, Malignancy. denies: COPD, Thyroid Disfunction Patient has suicidal ideation: No Patient has homicidal ideation: No - Past Medical History Cardiac Medical History: Reports: Hx Hypertension Neurological Medical History: Reports: Hx Cerebrovascular Accident - age 6 with left side residual weakness Renal/ Medical History: Denies: Hx Peritoneal Dialysis Psychiatric Medical History: Reports: Hx Anxiety, Hx Depression Past Surgical History: Reports: Hx Section - x 3, Hx Orthopedic Surgery - L LEG - Immunizations Immunizations up to date: Yes Hx Diphtheria, Pertussis, Tetanus Vaccination: Yes Review of Systems - Review of Systems Constitutional: denies: Fever EENT: No symptoms reported Cardiovascular: denies: Chest pain, Palpitations, Dyspnea, Dizziness, Lightheaded Respiratory: denies: Hurts to breathe, Short of breath Gastrointestinal: No symptoms reported Genitourinary: denies: Burning, Dysuria Female Genitourinary: See HPI Musculoskeletal: No symptoms reported Skin: No symptoms reported Hematologic/Lymphatic: No symptoms reported Neurological/Psychological: denies: Weakness, Headaches Physical Exam - Vital signs Vitals: Temp Pulse Resp BP Pulse Ox 97.9 F 97 22 H 167/103 H 100 04/26/19 22:20 04/26/19 22:20 04/26/19 22:20 04/26/19 22:20 04/26/19 22:20 - Notes Notes: GENERAL: Alert, interacts well. No acute distress. HEAD: Normocephalic, atraumatic. EYES: Pupils equal, round, and reactive to light. Extraocular movements intact. ENT: Oral mucosa moist, tongue midline. NECK: Full range of motion. Supple. Trachea midline. LUNGS: Clear to auscultation bilaterally, no wheezes, rales, or rhonchi. No respiratory distress. HEART: Regular rate and rhythm. No murmur ABDOMEN: Soft, non-tender. Non-distended. Bowel sounds present in all 4 quadrants. EXTREMITIES: Moves all 4 extremities spontaneously. No edema, normal radial and dorsalis pedis pulses bilaterally. No cyanosis. BACK: no cervical, thoracic, lumbar midline tenderness. No saddle anesthesia, normal distal neurovascular exam. NEUROLOGICAL: Alert and oriented x3. Normal speech. cranial nerves II through XII grossly intact PSYCH: Normal affect, normal mood. SKIN: Warm, dry, normal turgor. No rashes or lesions noted. Course - Re-evaluation Re-evalutation: 04/27/19 01:49 I have discussed this case with my attending Dr. Orozco who suggests IV labetolol for a BP of 165/108 while in the ED. 04/27/19 03:04 Laboratory 04/27/19 04/27/19 04/27/19 00:07 00:20 00:20 WBC 13.1 H RBC 4.41 Hgb 9.8 L Hct 31.1 L MCV 71 L MCH 22.2 L MCHC 31.4 L RDW 18.0 H Plt Count 256 Lymph % (Auto) 18.4 [place] % (Auto) 6.0 Eos % (Auto) 0.5 Baso % (Auto) 0.3 Absolute Neuts (auto) 9.8 H Absolute Lymphs (auto) 2.4 Absolute Monos (auto) 0.8 Absolute Eos (auto) 0.1 Absolute Basos (auto) 0.0 Seg Neutrophils % 74.8 Sodium 135.2 L Potassium 3.4 L Chloride 104 Carbon Dioxide 23 Anion Gap 8 BUN 7 Creatinine 0.57 Est GFR ( Amer) > 60 Est GFR (MDRD) Non-Af > 60 Glucose 91 Calcium 9.8 Total Bilirubin 0.3 Direct Bilirubin 0.1 Neonat Total Bilirubin Not Reportable Neonat Direct Bilirubin Not Reportable Neonat Indirect Bili Not Reportable AST 21 ALT 14 Alkaline Phosphatase 61 Total Protein 6.7 Albumin 3.6 Lipase 25.3 Beta HCG, Quant Total Beta HCG Urine Color YELLOW Urine Appearance CLEAR Urine pH 6.0 Ur Specific [place] 1.025 Urine Protein 30 H Urine Glucose (UA) NEGATIVE Urine Ketones TRACE H Urine Blood NEGATIVE Urine Nitrite NEGATIVE Urine Bilirubin NEGATIVE Urine Urobilinogen 4.0 H Ur Leukocyte Esterase NEGATIVE Urine WBC (Auto) 2 Squamous Epi Cells Auto 2 Calcium Oxalate Cr Auto MODERATE Urine Mucus (Auto) MOD Urine Ascorbic Acid NEGATIVE Urine HCG, Qual POSITIVE H Blood Type Rhogam Indicated 04/27/19 04/27/19 00:20 01:47 WBC RBC Hgb Hct MCV MCH MCHC RDW Plt Count Lymph % (Auto) [place] % (Auto) Eos % (Auto) Baso % (Auto) Absolute Neuts (auto) Absolute Lymphs (auto) Absolute Monos (auto) Absolute Eos (auto) Absolute Basos (auto) Seg Neutrophils % Sodium Potassium Chloride Carbon Dioxide Anion Gap BUN Creatinine Est GFR ( Amer) Est GFR (MDRD) Non-Af Glucose Calcium Total Bilirubin Direct Bilirubin Neonat Total Bilirubin Neonat Direct Bilirubin Neonat Indirect Bili AST ALT Alkaline Phosphatase Total Protein Albumin Lipase Beta HCG, Quant 32897.00 H Total Beta HCG POSITIVE Urine Color Urine Appearance Urine pH Ur Specific [place] Urine Protein Urine Glucose (UA) Urine Ketones Urine Blood Urine Nitrite Urine Bilirubin Urine Urobilinogen Ur Leukocyte Esterase Urine WBC (Auto) Squamous Epi Cells Auto Calcium Oxalate Cr Auto Urine Mucus (Auto) Urine Ascorbic Acid Urine HCG, Qual Blood Type O POSITIVE Rhogam Indicated RHOGAM NOT INDICATED Obstetrics Ultrasound 04/27/19 00:36 IMPRESSION: 1. Single living intrauterine in breech presentation at this time with an estimated ultrasound age of 16 weeks, 5 days with an estimated due date of 10/07/2019. This corresponds with the estimated clinical gestational age 2. The placenta is anterior in location without evidence of placenta previa. 3. The amniotic fluid index is grossly within normal limits. 4. During the examination, the technologist noted a possible uterine contraction. Patient's blood pressure has come down to 142/97. Discussed with her the importance of continuing taking her labetalol as prescribed. Also discussed continued follow-up with DRUG ABUSE COUNSELOR on Wednesday. Close return precautions discussed including vaginal bleeding or lower abdominal cramping. Patient states after fluid and Tylenol her lower abdominal cramping is gone. Patient stable for discharge. - Vital Signs Vital signs: Temp Pulse Resp BP Pulse Ox 97.9 F 97 22 H 167/103 H 100 04/26/19 22:20 04/26/19 22:20 04/26/19 22:20 04/26/19 22:20 04/26/19 22:20 - Laboratory Result Diagrams: 04/27/19 00:20 04/27/19 00:20 Laboratory results interpreted by me: 04/27/19 04/27/19 04/27/19 00:07 00:20 00:20 WBC 13.1 H Hgb 9.8 L Hct 31.1 L MCV 71 L MCH 22.2 L MCHC 31.4 L RDW 18.0 H Absolute Neuts (auto) 9.8 H Sodium 135.2 L Potassium 3.4 L Beta HCG, Quant Urine Protein 30 H Urine Ketones TRACE H Urine Urobilinogen 4.0 H Urine HCG, Qual POSITIVE H 04/27/19 00:20 WBC Hgb Hct MCV MCH MCHC RDW Absolute Neuts (auto) Sodium Potassium Beta HCG, Quant 44689.00 H Urine Protein Urine Ketones Urine Urobilinogen Urine HCG, Qual Discharge - Discharge Clinical Impression: Vaginal bleeding before 22 weeks gestation, Dehydration, Preeclampsia complicating hypertension Condition: Stable Disposition: HOME, SELF-CARE Additional Instructions: As we discussed you have been seen and treated in the emergency department for your lower abdominal cramping, elevation in blood pressure and vaginal bleeding. The baby looks to be in the proper position at this time. Your labs also are unremarkable. Your blood pressure was noted to be elevated at today's visit. You have been treated with IV medications. Please make sure he continue to take your home medications as prescribed. Please also make sure you follow-up with your DRUG ABUSE COUNSELOR on Wednesday as discussed. Please return to the emergency room for any further concerns. Referrals: HARI SUAREZ MD [Primary Care Provider] - Follow up as needed
--- NOTE | 2019-04-27 01:59 | RADIOLOGY REPORT (SQ) ---
EXAM: Ultrasound limited CLINICAL DATA: 28-year-old female who is 16 weeks , bleeding. TECHNICAL DATA: Transabdominal ultrasound imaging was performed through the gravid uterus. This study was performed on 04/27/2019 at 1:21 AM COMPARISON: None. FINDINGS: ANATOMIC EVALUATION FETUS single POSITION breech HEART RATE 153 bpm AMNIOTIC FLUID largest vertical pocket measures 2.4 cm PLACENTA LOCATION anterior PREVIA none MEASUREMENTS BPD: 3.5 cm corresponding to 16 weeks, 5 days. HC: 13.18 cm corresponding to 16 weeks, 5 days. AC: 10.75 cm corresponding to 16 weeks, 5 days. FL: 2.25 cm corresponding to 16 weeks, 5 days. CER: 3.3 cm FL/AC: 20.9 FL/BPD: 64.3 HC/AC: 1.23 CI: 85.0 EFW: 166 grams +/- 25 grams CLINICAL DATES LMP 12/31/2018 [place] 16 weeks 5 days EDC 10/07/[address] DATES BY ULTR[address]OUND [address] [place] 16 weeks 5 days EDC 10/07/2019 IMPRESSION: 1. Single living intrauterine in breech presentation at this time with an estimated ultrasound age of 16 weeks, 5 days with an estimated due date of 10/07/2019. This corresponds with the estimated clinical gestational age 2. The placenta is anterior in location without evidence of placenta previa. 3. The amniotic fluid index is grossly within normal limits. 4. During the examination, the technologist noted a possible uterine contraction.
[2019-04-27 03:39] VITALS: BP 138/81
== END 2019-04-27 03:38 | disposition home or self-care (01) ==
LOC: ER 21:46
DX: O20.9 Hemorrhage in early pregnancy, unspecified (principal); O14.92 Unspecified pre-eclampsia, second trimester; O26.892 Other specified pregnancy related conditions, second trimester; R10.30 Lower abdominal pain, unspecified; O99.282 Endocrine, nutritional and metabolic diseases complicating pregnancy, second trimester; E86.0 Dehydration; O99.012 Anemia complicating pregnancy, second trimester; D64.9 Anemia, unspecified; Z3A.16 16 weeks gestation of pregnancy; Z79.899 Other long term (current) drug therapy; Z88.5 Allergy status to narcotic agent
CPT/HCPCS: 99284; 96361; 96374; 86900; 86901; 36415; 84702; 83690; 85025; 81025; 80053; 81001; 76815; J3490; J7030

== ENCOUNTER 2019-05-28 18:22 | Outpatient (CLI) | payer OTHER, MEDICAID ==
[2019-05-28] MEDS ORDERED: LABETALOL HCL 200 MG TABLET ONE (19:21)
[2019-05-28 19:46] LABS: APPEARANCE,URINE CLOUDY; BILIRUBIN,URINE NEGATIVE (NEGATIVE); GLUCOSE, URINE NEGATIVE (NEGATIVE); KETONES,URINE 80 mg/dL (NEGATIVE); LEUKOCYTE ESTERASE,URINE NEGATIVE (NEGATIVE); NITRITE,URINE NEGATIVE (NEGATIVE); PROTEIN,URINE 100 mg/dL (NEGATIVE); UROBILINOGEN,URINE NEGATIVE mg/dL (<2.0)
[2019-05-28 19:54] LABS: COLOR,URINE DARK YELLOW
[2019-05-28 20:06] LABS: ABSOLUTE LYMPHOCYTES (AUTO) 1.5 10^3/uL (0.5-4.7); ABSOLUTE MONOCYTES (AUTO) 0.6 10^3/uL (0.1-1.4); BASOPHILS % (AUTO) 0.2 % (0-2); EOSINOPHILS % (AUTO) 0.2 % (0-6); HEMATOCRIT 32.1 % (36.0-47.0); LYMPHOCYTES % (AUTO) 9.6 % (13-45); MEAN CORPUSCULAR HEMOGLOBIN 22.3 pg (27.0-33.4); MEAN CORPUSCULAR HGB CONC 31.2 g/dL (32.0-36.0); MEAN CORPUSCULAR VOLUME 71 fl (80-97); MONOCYTES % (AUTO) 3.8 % (3-13); PLATELET COUNT 239 10^3/uL (150-450); RED CELL DISTRIBUTION WIDTH 17.1 % (11.5-14.0); SEGMENTED NEUTROPHILS % (AUTO) 86.2 % (42-78); TOTAL CELLS COUNTED % (AUTO) 100 %; WHITE BLOOD COUNT 15.1 10^3/uL (4.0-10.5)
[2019-05-28 20:17] LABS: URINE AMPHETAMINES SCREEN NEGATIVE; URINE BARBITURATES SCREEN NEGATIVE; URINE BENZODIAZEPINES SCREEN NEGATIVE; URINE COCAINE SCREEN NEGATIVE; URINE MARIJUANA (THC) SCREEN NEGATIVE; URINE METHADONE SCREEN NEGATIVE; URINE PHENCYCLIDINE SCREEN NEGATIVE
[2019-05-28] MEDS ORDERED: RINGERS SOLUTION,LACTATED 1,000 ML IV PRN (20:30)
[2019-05-28 20:35] LABS: ALBUMIN 3.6 g/dL (3.5-5.0); ALKALINE PHOSPHATASE 69 U/L (38-126); AMYLASE 61 U/L (30-110); ANION GAP 11 (5-19); ASPARTATE AMINO TRANSFERASE 19 U/L (14-36); BILIRUBIN,DIRECT 0.2 mg/dL (0.0-0.4); BILIRUBIN,TOTAL 0.4 mg/dL (0.2-1.3); BLOOD UREA NITROGEN 8 mg/dL (7-20); CALCIUM 9.5 mg/dL (8.4-10.2); CARBON DIOXIDE 19 mmol/L (22-30); CHLORIDE 108 mmol/L (98-107); GLUCOSE 80 mg/dL (75-110); POTASSIUM 4.4 mmol/L (3.6-5.0); TOTAL PROTEIN 6.5 g/dL (6.3-8.2); URIC ACID 5.2 mg/dL (2.5-6.2)
[2019-05-28 20:40] LABS: URINE PROTEIN 24.7 mg/dL (<12)
[2019-05-28 20:49] LABS: UR PRO/CREAT RATIO RESULT 0.1 mg/mg (0.0-0.2); URINE CREATININE 395.7 mg/dL (16-327)
[2019-05-28] MEDS ORDERED: RINGERS SOLUTION,LACTATED 1,000 ML IV ONE (21:00)
[2019-05-28 21:40] LABS: FREE T3 3.39 pg/mL (2.77-5.27); FREE T4 (FREE THYROXINE) 1.4 ng/dL (0.78-2.19)
[2019-05-28 21:52] LABS: ABSOLUTE RETICS # 0.059 10^6/uL (0.028-0.122); RETICULOCYTE COUNT (AUTO) 1.31 % (0.66-2.85)
[2019-05-28 21:54] LABS: THYROID STIMULATING HORMONE 0.03 uIU/mL (0.47-4.68)
--- NOTE | 2019-05-28 22:02 | RADIOLOGY REPORT (SQ) ---
EXAM DESCRIPTION: US ABDOMEN LIMITED COMPLETED DATE/TME: 05/28/2019 20:28 CLINICAL HISTORY: 28 years Female gallbladder, periumbilical pain, appy? COMPARISON: None. TECHNIQUE: Transabdominal grayscale imaging were performed to evaluate the right lower and upper quadrant. FINDINGS: Aorta appears normal in caliber. The visualized segments of the pancreas are unremarkable. Liver is normal in size. No focal lesions are noted. Unremarkable gallbladder. Common duct measures 3 mm. Right kidney is normal in size without hydronephrosis. The appendix is not identified. No fluid in the right lower quadrant. IMPRESSION: No evidence of acute process Nonvisualization of the appendix
--- NOTE | 2019-05-28 22:02 | RADIOLOGY REPORT (SQ) ---
EXAM DESCRIPTION: US LIMITED COMPLETED DATE/TME: 05/28/2019 00:00 CLINICAL HISTORY: 28 years, Female, 21.1ega, umbilical pain, placenta, cervical length EXAM DESCRIPTION: CLINICAL HISTORY: 21.1ega, umbilical pain, placenta, cervical length COMPARISON: None. FINDINGS: [Transabdominal ] [ ] images of the pelvis were submitted. heart rate is 144 bpm. MANN is 11.8 cm, normal. Cervix length 34 mm. Presentation is vertex. Placental location is anterior. IMPRESSION: Single live IUP as above.
[2019-05-28 22:03] LABS: IRON(TIBC) 37.9 ug/dL (37-170)
[2019-05-28] MEDS ORDERED: HYDROXYZINE PAMOATE 50 MG CAPSULE ONE (22:11)
[2019-05-28 22:35] LABS: FERRITIN 7.15 ng/mL (6.2-137.0)
[2019-05-28] MEDS ORDERED: LABETALOL HCL 200 MG TABLET PO ONE (23:00)
[2019-05-28] MEDS ORDERED: HYDROXYZINE PAMOATE 50 MG CAPSULE PO ONE (23:00)
[2019-05-29] MEDS ORDERED: NALBUPHINE HCL INJ 10 MG/1 ML AMPULE INJ ONE (00:45)
== END 2019-05-28 23:24 | disposition home or self-care (01) ==
LOC: LC 18:22
PROVIDERS: ATTEND Student in an Organized Health Care Education/Training Program
PROC: 4A1HXCZ Monitoring of Products of Conception, Cardiac Rate, External Approach (ICD-10-PCS; principal; 2019-05-28)
DX: O99.612 Diseases of the digestive system complicating pregnancy, second trimester (principal); K52.9 Noninfective gastroenteritis and colitis, unspecified; Z3A.21 21 weeks gestation of pregnancy
CPT/HCPCS: 36415; 76705; 76815; 80053; 80307; 81001; 82150; 82570; 82607; 82728; 82746; 83540; 83550; 83615; 83690; 84156; 84439; 84443; 84481; 84550; 85025; 85045

== ENCOUNTER 2019-07-11 16:09 | Outpatient (CLI) | payer OTHER, MEDICAID ==
[2019-07-11] MEDS ORDERED: RINGERS SOLUTION,LACTATED 1,000 ML IV PRN (16:29)
[2019-07-11] MEDS ORDERED: ACETAMINOPHEN 325 MG TABLET PO PRN (16:29)
[2019-07-11] MEDS ORDERED: BETAMET ACET/BETAMET NA INJ 6 MG/1 ML IM ONE (16:34)
[2019-07-11] MEDS ORDERED: CALCIUM GLUCONATE 1000 MG/10 ML INJ IV PRN (16:37)
[2019-07-11] MEDS ORDERED: CALCIUM GLUCONATE 1000 MG/10 ML INJ IV ONE (16:38)
[2019-07-11] MEDS ORDERED: BETAMET ACET/BETAMET NA INJ 6 MG/1 ML ONE (16:44)
[2019-07-11 16:55] LABS: APPEARANCE,URINE CLEAR; BILIRUBIN,URINE NEGATIVE (NEGATIVE); COLOR,URINE YELLOW; GLUCOSE, URINE NEGATIVE (NEGATIVE); KETONES,URINE NEGATIVE (NEGATIVE); LEUKOCYTE ESTERASE,URINE NEGATIVE (NEGATIVE); NITRITE,URINE NEGATIVE (NEGATIVE); PROTEIN,URINE NEGATIVE (NEGATIVE); URINE SPECIFIC GRAVITY 1.016; UROBILINOGEN,URINE NEGATIVE mg/dL (<2.0)
[2019-07-11 17:06] LABS: URINE AMPHETAMINES SCREEN NEGATIVE; URINE BARBITURATES SCREEN NEGATIVE; URINE BENZODIAZEPINES SCREEN NEGATIVE; URINE COCAINE SCREEN NEGATIVE; URINE MARIJUANA (THC) SCREEN NEGATIVE; URINE METHADONE SCREEN NEGATIVE; URINE PHENCYCLIDINE SCREEN NEGATIVE
[2019-07-11 17:24] LABS: UR PRO/CREAT RATIO RESULT 0.4 mg/mg (0.0-0.2); URINE CREATININE 122.4 mg/dL (16-327); URINE PROTEIN 43.3 mg/dL (<12)
[2019-07-11] MEDS ORDERED: ACETAMINOPHEN 325 MG TABLET ONE ×2 (17:24→17:32)
[2019-07-11] MEDS ORDERED: HYDRALAZINE HCL INJ/PF 20 MG/1 ML SDV ONE (17:36)
[2019-07-11 17:42] LABS: HEMATOCRIT 30.6 % (36.0-47.0); HEMOGLOBIN 9.6 g/dL (12.0-15.5); MEAN CORPUSCULAR HEMOGLOBIN 22.1 pg (27.0-33.4); MEAN CORPUSCULAR HGB CONC 31.3 g/dL (32.0-36.0); MEAN CORPUSCULAR VOLUME 71 fl (80-97); PLATELET COUNT 240 10^3/uL (150-450); RED BLOOD COUNT 4.34 10^6/uL (3.72-5.28); RED CELL DISTRIBUTION WIDTH 17.6 % (11.5-14.0); WHITE BLOOD COUNT 13.1 10^3/uL (4.0-10.5)
[2019-07-11 18:08] LABS: ALBUMIN 3.3 g/dL (3.5-5.0); ALKALINE PHOSPHATASE 95 U/L (38-126); ANION GAP 12 (5-19); ASPARTATE AMINO TRANSFERASE 15 U/L (14-36); BILIRUBIN,DIRECT 0.1 mg/dL (0.0-0.4); BILIRUBIN,TOTAL 0.3 mg/dL (0.2-1.3); BLOOD UREA NITROGEN 6 mg/dL (7-20); CALCIUM 10.2 mg/dL (8.4-10.2); CARBON DIOXIDE 24 mmol/L (22-30); CHLORIDE 101 mmol/L (98-107); GLUCOSE 79 mg/dL (75-110); POTASSIUM 3.6 mmol/L (3.6-5.0); TOTAL PROTEIN 6.5 g/dL (6.3-8.2); URIC ACID 4.1 mg/dL (2.5-6.2)
[2019-07-11] MEDS ORDERED: MAGNESIUM SULFATE 20 GM/500 ML RTUINJ IV ONE (18:28)
--- NOTE | 2019-07-11 18:44 | PDOC TRANSFER SUMMARY ---
General Admission Date/PCP: JULISA PARK MD Admission Date: 07/11/19 Transfer Date: 07/11/19 Accepting Facility: [facility] Accepting Physician: Dr. Smith Resuscitation Status: Full Code - Transfer Diagnosis (1) Pre-eclampsia added to pre-existing hypertension Is this a current diagnosis for this admission?: Yes (2) Is this a current diagnosis for this admission?: Yes (3) Sequelae of cerebrovascular disease Is this a current diagnosis for this admission?: Yes (4) Weakness Is this a current diagnosis for this admission?: Yes - Transfer Medications Home Medications: Enoxaparin Sodium [Lovenox Inj 40 Mg/0.4 Ml Disp.Syrin] 40 mg SUBCUT BID 05/28/19 Labetalol HCl 100 mg PO BID 05/28/19 Aspirin [Aspirin 81 mg Chewable Tablet] 81 mg PO DAILY 07/11/19 Vit No.130/Iron/Folic [ Vitamins] 1 each PO DAILY 07/11/19 Transfer Medications: Current Medications Acetaminophen (Tylenol 325 Mg Tablet) 650 mg PO Q4HP PRN PRN Reason: pain Stop: 08/10/19 16:28 Last Admin: 07/11/19 17:28 Dose: 650 mg Documented by: Calcium Gluconate (Calcium Gluconate Inj 1000 Mg/10 Ml) 1,000 mg IV NOW PRN PRN Reason: PER PROTOCOL Stop: 08/10/19 16:36 Lactated Ringer's (Lactated Ringers 1000 Ml Iv Soln) 1,000 mls @ 100 mls/hr IV CONTINUOUS PRN PRN Reason: THIS MED IS NOT "PRN" Stop: 08/10/19 16:28 Magnesium Sulfate 2 gms/hour - Allergies Allergies/Adverse Reactions: oxycodone HCl [From Percocet] Allergy (Verified 07/11/19 17:45) [facility] Hospital Course Hospital Course: arrived via EMS with elevated blood pressures in severe ranges with complaints of Headache and blurry vision as well as a two day history of right upper quadrant pain. EMS had given this patient Magnesium 8 gms IM as well as 3 grams IV although there was no report of seizure activity. Her history is significant for Pre Eclampsia in her previous three pregnancies that were all delivered via c/section between EGAs of 27-36 weeks. She also is on lovenox for a history of a CVA when the patient was 6 years old. She indicates that she did take her once daily dose of lovenox earlier today and she has been consistent with her Labetolol of 200 mg po BID. Physical Exam Vital Signs: Intake & Output 07/10/19 07/11/19 07/12/19 06:59 06:59 06:59 Weight 93 kg General appearance: PRESENT: no acute distress, cooperative Head exam: PRESENT: atraumatic Extremities exam: PRESENT: other - left sided mild weakness Results Laboratory Results: 07/11/19 17:26 07/11/19 17:26 07/11/19 07/11/19 07/11/19 16:20 17:26 17:26 WBC 13.1 H RBC 4.34 Hgb 9.6 L Hct 30.6 L MCV 71 L MCH 22.1 L MCHC 31.3 L RDW 17.6 H Plt Count 240 Sodium 136.8 L Potassium 3.6 Chloride 101 Carbon Dioxide 24 Anion Gap 12 BUN 6 L Creatinine 0.63 Est GFR ( Amer) > 60 Glucose 79 Uric Acid 4.1 Calcium 10.2 Magnesium 4.2 H* Total Bilirubin 0.3 AST 15 Alkaline Phosphatase 95 Total Protein 6.5 Albumin 3.3 L Urine Color YELLOW Urine Appearance CLEAR Urine pH 7.0 Ur Specific [place] 1.016 Urine Protein NEGATIVE Urine Glucose (UA) NEGATIVE Urine Ketones NEGATIVE Urine Blood NEGATIVE Urine Nitrite NEGATIVE Ur Leukocyte Esterase NEGATIVE Urine WBC (Auto) 2 Urine RBC (Auto) 1 Plan Discharge Plan: transfer to tertiary facility secondary to patient's history and current pre-ec lampsia based on symptoms and laboratory values. Dr. Smith has kindly accepted. She has received betamethosone 12 mg IM x 1 and due to get another dose 24 hours later. Now that her Mag level is reassuring I have started her on 2 gms an hour for transport and am trying to lower her BP with hydralazine as needed. Time Spent: Greater than 30 Minutes
== END 2019-07-11 20:58 | disposition short-term general hospital (02) ==
LOC: LC 16:09 → EEVIPCON 16:09 → LC 20:58
PROVIDERS: ATTEND Obstetrics & Gynecology
PROC: 4A1HXCZ Monitoring of Products of Conception, Cardiac Rate, External Approach (ICD-10-PCS; principal; 2019-07-11)
DX: O11.2 Pre-existing hypertension with pre-eclampsia, second trimester (principal); O10.912 Unspecified pre-existing hypertension complicating pregnancy, second trimester; O99.412 Diseases of the circulatory system complicating pregnancy, second trimester; I69.354 Hemiplegia and hemiparesis following cerebral infarction affecting left non-dominant side; O34.219 Maternal care for unspecified type scar from previous cesarean delivery; Z3A.27 27 weeks gestation of pregnancy; Z88.6 Allergy status to analgesic agent
CPT/HCPCS: 59899; 36415; 83615; 83735; 84156; 84550; 82570; 85027; 80053; 81001; 80307; J0360; J0702; J3475; J0610